=== PATIENT | male | born 1985 | race Caucasian/White ===

== ENCOUNTER 2017-08-27 09:15 | Emergency (ER) | payer SELFPAY ==
[2017-08-27] MEDS ORDERED: NS 0.9% 1000 ML* 1,000 ML IV ONE (09:35)
[2017-08-27] MEDS ORDERED: cefTRIAXone VIAL(*) 1,000 MG VIAL IVPB ONE (09:38)
--- NOTE | 2017-08-27 09:45 | UC ---
Lower Extremity/Ankle HPI - HPI Summary HPI Summary: Patient here for redness and swelling of the lower left leg. states he slept all day yesterday which is notlike him, woke up drenched in sweat, says he was hallucinating and very hot. Ibuprofen was given. patient states his back aches. - History of Current Complaint Chief Complaint: UCLowerExtremity Stated Complaint: LEFT LEG PAIN Time Seen by Provider: 08/27/17 09:27 Hx Obtained From: Patient Onset/Duration: Sudden Onset, Lasting Days Severity Initially: Mild Severity Currently: Mild Pain Intensity: 2 Aggravating Factor(s): Standing, Ambulation Alleviating Factor(s): Nothing Able to Bear Weight: Yes Related History: Other - Allergies/Home Medications Allergies/Adverse Reactions: Allergies Allergy/AdvReac Type Severity Reaction Status Date / Time No Known Allergies Allergy Verified 08/27/17 09:26 Home Medications: Home Medications Albuterol 2.5MG/3ML (0.083%)* [Ventolin 2.5 MG/3 ML NEB.FIDEL*] 1 inh TID PRN [History Confirmed 08/27/17] Albuterol HFA INHALER* [Ventolin HFA Inhaler*] 1 inh TID PRN 08/27/17 [History Confirmed 08/27/17] PMH/Surg Hx/FS Hx/Imm Hx Previously Healthy: Yes - Surgical History Surgical History: Yes Surgery Procedure, Year, and Place: Tonsils - Family History Known Family History: Positive: Hypertension - Social History Alcohol Use: Occasionally Substance Use Type: None Smoking Status (MU): Never Smoked Tobacco Review of Systems Constitutional: Fever, Chills, Fatigue Skin: Negative Eyes: Negative ENT: Negative Respiratory: Shortness Of Breath Cardiovascular: Negative Gastrointestinal: Negative Motor: Negative Neurovascular: Negative Musculoskeletal: Arthralgia, Edema - left lower leg, Myalgia Neurological: Negative Psychological: Negative Is Patient Immunocompromised?: No All Other Systems Reviewed And Are Negative: Yes Physical Exam Triage Information Reviewed: Yes Appearance: Ill-Appearing, Pain Distress, Obese Vital Signs: Initial Vital Signs Temp 98.9 F 08/27/17 09:26 Pulse 125 08/27/17 09:26 Resp 24 08/27/17 09:26 BP 160/90 08/27/17 09:26 Pulse Ox 97 08/27/17 09:26 Vital Signs Reviewed: Yes Eye Exam: Normal ENT Exam: Normal Dental Exam: Normal Neck exam: Normal Neck: Positive: Supple, Nontender, No Lymphadenopathy Respiratory: Positive: Chest non-tender, Lungs clear, Normal breath sounds Cardiovascular Exam: Normal Cardiovascular: Positive: No Murmur, Pulses Normal, Tachycardia Abdominal Exam: Normal Abdomen Description: Positive: CVA Tenderness (R) - neg, CVA Tenderness (L) - negn Bowel Sounds: Positive: Present Musculoskeletal Exam: Normal Musculoskeletal: Positive: Strength Intact Neurological Exam: Normal Neurological: Positive: Alert, Muscle Tone Normal Psychological: Positive: Normal Response To Family Skin: Positive: Other - erythema to left lower leg, mid toe on left foot swollen , blistered, purulent drainage noted from the blister. Lower Extremity Course/Dx - Course Course Of Treatment: hx obtained, exam performed ,meds reviewed, Ua obtained, IV fluids and abx administered. vs repeated, patient feels better with the fluids, sent home with recommendation to go to ER if fever becomes uncontrollable, has trouble urinating or becomes more SOB - Differential Dx/Diagnosis Differential Diagnosis/HQI/PQRI: Cellulitis, DVT, Infection Provider Diagnoses: cellulitis. tachycardia. SOB. open blister on toe Discharge - Sign-Out/Discharge Documenting (check all that apply): Patient Departure - Discharge Plan Condition: Stable Disposition: HOME Prescriptions: Sulfamethox/Trimethoprim DS* [Bactrim DS 800/160 TAB*] 1 tab PO BID #[id number] tab Patient Education Materials: Cellulitis (ED) Referrals: Non Staff,Doctor [Primary Care Provider] - - Billing Disposition and Condition Condition: STABLE Disposition: Home
[2017-08-27 11:34] VITALS: BP 142/98
== END 2017-08-27 11:48 | disposition home or self-care (01) ==
LOC: UCCORT 09:15
DX: L03.116 Cellulitis of left lower limb (principal); S90.425A Blister (nonthermal), left lesser toe(s), initial encounter; R00.0 Tachycardia, unspecified; R06.02 Shortness of breath; M54.9 Dorsalgia, unspecified; X58.XXXA Exposure to other specified factors, initial encounter; Y92.9 Unspecified place or not applicable
CPT/HCPCS: 81003; 96360; 96365; 99202; G0463; J0696